=== PATIENT | male | born 1960 | race Caucasian/White ===

== ENCOUNTER → 2017-03-17 | Outpatient (CLI) | payer MEDICARE, BC ==
[~2017-03-17] MED LIST: ABILIFY10 MG PO; ASPIRIN EC81 MG; ATENOLOL25 MG PO; ATORVASTATIN CA10 MG; EFFIENT10 MG PO; LISINOPRIL5 MG PO; NORCO 10-325 T1 EACH; OXYCONTIN20 MG; PRAVACHOL20 MG PO; PRISTIQ ER100 MG PO
--- NOTE | 2017-03-17 14:19 | Diagnostic Imaging Report ---
EXAMINATION: Head CT HISTORY: Headache for last 4 days, frontal pain. COMPARISON: None. TECHNIQUE: Multidetector axial images were obtained without contrast from the foramen magnum to the vertex . The images were reconstructed using brain and bone algorithms. Thin section brain images were reformatted into coronal and sagittal planes. Intravenous contrast: None. Motion/streaking artifact limits the evaluation of the skull base and posterior cranial fossa. FINDINGS: Parenchyma: 1. No abnormal densities. 2. No mass or hemorrhage. No CT evidence of acute territorial vascular insult. Extra-axial spaces:No abnormal density. No extra-axial fluid collections Brain volume: Normal for age. Ventricles: No hydrocephalus or displacement. Arteries: No density suggestive of thrombus. Dural sinuses: No abnormal density. Extra-axial spaces: No abnormal density. Foramen magnum: No mass, Chiari malformation, or basilar invagination. Sella: No obvious mass. Paranasal/mastoid sinuses: Partially visualized opacification of the bilateral ethmoidal, right sphenoid and partially visualized maxillary sinuses. Skull/Scalp: No lytic or blastic lesions. No fractures. IMPRESSION: 1. Normal head CT. 2. Partially visualized sinusitis as detail above. A message was left to the PA as requested. Signed by: Dr. Loren Burnette M.D. on 03/17/2017 2:15 PM
== END ==
LOC: CT 11:37
PROVIDERS: ATTEND Family Medicine
DX: R51 Headache (principal)
CPT/HCPCS: 70450

== ENCOUNTER → 2017-09-07 | Day surgery (SDC) | payer MEDICARE, BC ==
[2017-09-06 14:22] LABS: BASOPHILS # (AUTO) 0.1 (0.0-0.1); BASOPHILS % 0.7 % (0.0-1.0); EOSINOPHILS # (AUTO) 0.3 (0.0-0.4); EOSINOPHILS % 3.1 % (0.0-6.0); HEMATOCRIT 49.3 % (38.2-49.6); LYMPHOCYTES # (AUTO) 2.5 (1.0-3.2); LYMPHOCYTES % 28.3 % (18.0-39.1); MEAN CORPUSCULAR HEMOGLOBIN 29.5 pg (28-32); MEAN CORPUSCULAR HGB CONC 32.5 g/dL (31-35); MEAN CORPUSCULAR VOLUME 90.8 fL (81-99); MONOCYTES # (AUTO) 0.4 (0.2-0.8); MONOCYTES % 4.8 % (4.4-11.3); NEUTROPHILS # (AUTO) 5.6 (2.1-6.9); NEUTROPHILS % 62.8 % (38.7-80.0); PLATELET COUNT 281 x10e3/uL (140-360); RED BLOOD COUNT 5.43 x10e6/uL (4.3-5.7); RED CELL DISTRIBUTION WIDTH 13.9 % (11.7-14.4)
[2017-09-06 15:08] LABS: ALBUMIN 3.9 g/dL (3.5-5.0); ALBUMIN/GLOBULIN RATIO 1.3 (0.8-2.0); ANION GAP 14.7 mmol/L (8-16); CALCIUM 9.1 mg/dL (8.4-10.2); CREATININE, SERUM 1.56 mg/dL (0.72-1.25); POTASSIUM 4.7 mmol/L (3.5-5.1)
[2017-09-07] VITALS (9 sets, daily range): BP systolic 103–134; BP diastolic 42–76
[~2017-09-07] VITALS: Ht 180.3 cm; Wt 105.7 kg
[~2017-09-07] MED LIST changes: +ALPRAZOLAM 0.5 MG TAB ONE; +CLONAZEPAM1 MG PO; +DIPHENHYDRAMINE HCL 25 MG CAP ONE; +FENOFIBRATE145 MG PO; +FENTANYL CITRATE/PF 100MCG/2 ML INJ ONE; +FUROSEMIDE20 MG PO; +HEPARIN SOD (PORCINE) 1000 UNIT/ML 30ML ONE; +HEPARIN SOD/SOD CHLORIDE 2,000 ML ONE; +IOPAMIDOL 300MG/ML 100 ML INFUS..BTL IV ONE; +IOPAMIDOL 370 MG/ML 200 ML INFUS..BTL INJ ONE; +LIDOCAINE HCL 2% LOCAL 20 ML VIAL ONE; +METOPROLOL SUCC25 MG PO; +MIDAZOLAM HCL 2 MG/2 ML VIAL ONE; +NITROGLYCERIN/D5W 200 MCG/ML 250 ML ONE; +REVATIO20 MG PO; +SODIUM CHLORIDE 0.9% 1000ML 1,000 ML ONE; +TRAZODONE HCL50 MG PO; +VENLAFAXINE HC150 M1 PO; +VERAPAMIL HCL 2.5 MG/ML 2 ML VIAL ONE
--- NOTE | 2017-09-07 09:39 | Operative Report ---
DATE OF PROCEDURE: September 07, 2017 PROCEDURE: Cardiac catheterization. INDICATIONS: Cardiomyopathy. PRESEDATION ASSESSMENT: Medical history, social history and previous experience with anesthesia were reviewed as documented in the preoperative medical record. Results of the relevant diagnostic studies were reviewed. Planned choice of anesthesia, risks, complications, benefits and alternatives were discussed with the patient. The patient was deemed an appropriate candidate for planned choice of anesthetic. CONSENT: The benefits, risks, complications and alternatives of the procedure were discussed with the patient, and informed consent was obtained from the patient. MEDICATIONS: Please see nursing notes for medication administration during the procedure. PROCEDURE: The patient was brought to the cardiac catheterization laboratory in a fasting state. Right wrist was prepped and draped in a sterile fashion. One percent lidocaine was used to infiltrate the right wrist over the right radial artery. A 5-Nicaraguan sheath was inserted in the right radial artery using the Seldinger technique. Coronary angiography was performed using a Golden preformed catheter to engage both the RCA and the LCA. Multiple orthogonal views were obtained of each coronary artery. Golden catheter was also used to perform a left heart cath and obtain LV pressures. All catheters were removed over a guidewire. The access site was closed using a TR Band. The case ended without any complications. Estimated blood loss was approximately 20 mL. FINDINGS 1. Left main coronary artery: Large caliber, normal. 2. LAD: Very large vessel, goes to the apex. There is an 80% lesion in the proximal LAD. There is a large diagonal-1 with 90% ostial stenosis. 3. Left circumflex: Nondominant circ. There is a 70% ostial left circumflex lesion. 4. Ramus intermedius: Very large ramus without any significant coronary artery disease. 5. RCA: Large, dominant RCA. Medium-size RPDA and RPL systems. Distally, there is a 40% to 50% plaquing of the mid RCA and 99% stenosis of an acute marginal branch. 6. LV pressures: LVEDP was 14, and there was no gradient across the aortic valve. COMPLICATIONS: None. SPECIMEN REMOVED: None. IMPLANT: None. ESTIMATED BLOOD LOSS: 20 mL. RECOMMENDATIONS 1. Usual postcath care until TR Band removal. 2. Given multivessel CAD, will discuss options for revascularization with the patient and family as well as the primary senior client advisor, Dr. Emil Lozano, to make plan for revascularization. 3. Continue optimal medical therapy and risk factor management in the meantime. Job#: [id number] SANDEEP
== END | disposition home or self-care (01) ==
LOC: CATH LAB 06:40
PROVIDERS: ATTEND Internal Medicine
DX: I25.118 Atherosclerotic heart disease of native coronary artery with other forms of angina pectoris (principal); I42.9 Cardiomyopathy, unspecified; I11.0 Hypertensive heart disease with heart failure; I50.22 Chronic systolic (congestive) heart failure; Z01.812 Encounter for preprocedural laboratory examination; Z68.31 Body mass index [BMI] 31.0-31.9, adult; Z82.49 Family history of ischemic heart disease and other diseases of the circulatory system
CPT/HCPCS: 36415; 80053; 85025; 93458; J1644; J2001; J2250; J7030; Q9967

== ENCOUNTER → 2018-12-25 | Day surgery (SDC) | payer MEDICARE, BC ==
[2018-12-20 17:24] LABS: BASOPHILS # (AUTO) 0.1 (0.0-0.1); BASOPHILS % 0.9 % (0.0-1.0); EOSINOPHILS # (AUTO) 0.4 (0.0-0.4); EOSINOPHILS % 4.4 % (0.0-6.0); HEMATOCRIT 49.2 % (38.2-49.6); HEMOGLOBIN 15.7 g/dL (14.0-18.0); LYMPHOCYTES % 30.5 % (18.0-39.1); MEAN CORPUSCULAR HEMOGLOBIN 30.4 pg (28-32); MEAN CORPUSCULAR HGB CONC 31.9 g/dL (31-35); MEAN CORPUSCULAR VOLUME 95.2 fL (81-99); MONOCYTES # (AUTO) 0.9 (0.2-0.8); MONOCYTES % 9.3 % (4.4-11.3); NEUTROPHILS # (AUTO) 5.3 (2.1-6.9); NEUTROPHILS % 54.4 % (38.7-80.0); PLATELET COUNT 303 x10e3/uL (140-360); RED BLOOD COUNT 5.17 x10e6/uL (4.3-5.7); RED CELL DISTRIBUTION WIDTH 14.9 % (11.7-14.4)
[2018-12-20 17:40] LABS: ALANINE AMINOTRANSFERASE 34 IU/L (0-55); ALBUMIN 3.6 g/dL (3.5-5.0); ALBUMIN/GLOBULIN RATIO 1.1 (0.8-2.0); ALKALINE PHOSPHATASE 53 IU/L (40-150); ANION GAP 8.5 mmol/L (8-16); BLOOD UREA NITROGEN 5 mg/dL (7-26); BUN/CREATININE RATIO 5 (6-25); CALCIUM 9.8 mg/dL (8.4-10.2); CARBON DIOXIDE 27 mmol/L (22-29); CHLORIDE 103 mmol/L (98-107); CREATININE, SERUM 1.08 mg/dL (0.72-1.25); EST GLOMERULAR FILTRATION RATE > 60 ML/MIN (60-); GLUCOSE 88 mg/dL (74-118); POTASSIUM 4.5 mmol/L (3.5-5.1); SODIUM 134 mmol/L (136-145)
[~2018-12-25] VITALS: Ht 180.3 cm; Wt 108.9 kg
[~2018-12-25] MED LIST changes: +ASPIRIN81 MG PO; +CRESTOR10 MG PO; -HEPARIN SOD (PORCINE) 1000 UNIT/ML 30ML ONE; -IOPAMIDOL 300MG/ML 100 ML INFUS..BTL IV ONE; +METFORMIN HCL500 MG PO; +METOPROLOL SUCC50 MG PO; -NITROGLYCERIN/D5W 200 MCG/ML 250 ML ONE; -VERAPAMIL HCL 2.5 MG/ML 2 ML VIAL ONE
--- NOTE | 2018-12-25 14:28 | NUR ---
1428 Received in room #7,bedside report received from Jabier DE LA O. Alert oriented and appropriate, PERRLA, respirations even and unlabored to room air. Pulses x4 enormities equal and strong. Pedal pulses PT/DP X4 and marked. Cap fill brisk < 3 sec. + neurovascular function at this time Skin warm and dry integrity appears D/I. IV 20g to let forearm presents healthy w/o s/s of infiltration or complaint. Abdomen soft and supple. pt offered toileting, denies need to urinate or defecate. No personal affects with patient. Family Halima , Pt and family verbalizes understanding of POC. Currently w/o complaint of pain or need. right groin site dry and intact,no s/s hematoma no ,gross issues pain,pallor, pressure or dysrhythmia.ds/rn
--- NOTE | 2018-12-25 15:00 | NUR ---
1500Pt meets DC criteria. rt groin site assessed for s/s of complication and presence of hematoma. Skin warm, dry, no discolor, and pulses present. IV removed from left forearm. Distal tip appears intact. VS WNL. Pt denies pain, sob, or need at this time. Family at bedside. Review of discharge paperwork and follow up instructions. verbalized understanding. Pt to wheelchair and transported to front of hospital. Transferred to private vehicle under own strength w/o incident with DC paperwork in hand. - ds/rn
--- NOTE | 2018-12-25 18:19 | Operative Report ---
DATE OF PROCEDURE: 12/25/2018 SURGEON: Emil Lozano MD INDICATIONS: Coronary artery disease and angina. PROCEDURES PERFORMED: 1. Left heart catheterization, selective coronary angiography. 2. Deployment of right groin Mynx closure device. COMPLICATIONS: None. RECOMMENDATIONS: Medical therapy. DESCRIPTION OF PROCEDURE: Access obtained in the right femoral artery. A 6-Frisian sheath was placed. Coronary angiography demonstrated patent left main stent in the left anterior descending, proximal and midportion as well as the stent extending into the diagonal artery with widely patent circumflex, mild disease, 50%. Right coronary artery was dominant vessel, 50% mid stenosis. No critical stenosis or occlusion noted. No intervention deemed necessary. Right groin repaired using Mynx closure device. The patient discharged home the same day. Emil Lozano MD KSB/MODL /[id number]
== END | disposition home or self-care (01) ==
LOC: CATH LAB 10:05
PROVIDERS: ATTEND Internal Medicine Interventional Cardiology
DX: I25.119 Atherosclerotic heart disease of native coronary artery with unspecified angina pectoris (principal); I11.0 Hypertensive heart disease with heart failure; I50.9 Heart failure, unspecified; E66.9 Obesity, unspecified; Z01.812 Encounter for preprocedural laboratory examination; Z79.82 Long term (current) use of aspirin; Z79.84 Long term (current) use of oral hypoglycemic drugs; Z68.32 Body mass index [BMI] 32.0-32.9, adult; Z82.49 Family history of ischemic heart disease and other diseases of the circulatory system
CPT/HCPCS: 36415; 80053; 85025; 93454; C1760; C1769; J2001; J2250; J3010; J7030; Q9967; 99152

== ENCOUNTER 2019-04-15 10:25 | Inpatient (IN) | payer MEDICARE, BC ==
[~2019-04-15] VITALS: Ht 180.3 cm; Wt 105.2 kg
[~2019-04-15 10:25] MED LIST changes: -ALPRAZOLAM 0.5 MG TAB ONE; -DIPHENHYDRAMINE HCL 25 MG CAP ONE; -FENTANYL CITRATE/PF 100MCG/2 ML INJ ONE; -HEPARIN SOD/SOD CHLORIDE 2,000 ML ONE; -IOPAMIDOL 370 MG/ML 200 ML INFUS..BTL INJ ONE; -LIDOCAINE HCL 2% LOCAL 20 ML VIAL ONE; -MIDAZOLAM HCL 2 MG/2 ML VIAL ONE; -SODIUM CHLORIDE 0.9% 1000ML 1,000 ML ONE
[2019-04-15] MEDS ORDERED: SODIUM CHLORIDE 0.9% 1000ML 1,000 ML IV STA ×3 (10:29→12:25)
[2019-04-15 11:08] LABS: ABG HCO3 20 mmol/L (23-28); ABG PCO2 33 mmHg (41-51); ABG PO2 87 mmHg (80-105)
[2019-04-15 11:14] LABS: BASOPHILS # (AUTO) 0.1 (0.0-0.1); BASOPHILS % 0.6 % (0.0-1.0); EOSINOPHILS # (AUTO) 0.1 (0.0-0.4); EOSINOPHILS % 0.9 % (0.0-6.0); HEMATOCRIT 45.4 % (38.2-49.6); HEMOGLOBIN 14.8 g/dL (14.0-18.0); LYMPHOCYTES # (AUTO) 2.5 (1.0-3.2); LYMPHOCYTES % 22.2 % (18.0-39.1); MEAN CORPUSCULAR HGB CONC 32.6 g/dL (31-35); MEAN CORPUSCULAR VOLUME 92.1 fL (81-99); MONOCYTES # (AUTO) 1.2 (0.2-0.8); MONOCYTES % 10.2 % (4.4-11.3); NEUTROPHILS # (AUTO) 7.5 (2.1-6.9); NEUTROPHILS % 65.8 % (38.7-80.0); PLATELET COUNT 289 x10e3/uL (140-360); RED BLOOD COUNT 4.93 x10e6/uL (4.3-5.7); RED CELL DISTRIBUTION WIDTH 15.8 % (11.7-14.4)
[2019-04-15 11:39] LABS: ALBUMIN 3.9 g/dL (3.5-5.0); ALBUMIN/GLOBULIN RATIO 1.4 (0.8-2.0); ANION GAP 16.3 mmol/L (8-16); CALCIUM 9.4 mg/dL (8.4-10.2); CREATININE, SERUM 1.52 mg/dL (0.72-1.25); POTASSIUM 4.3 mmol/L (3.5-5.1)
[2019-04-15] MEDS ORDERED: LORAZEPAM INJ 2 MG/ML VIAL IV ONE (11:45)
[2019-04-15 11:48] LABS: CREATINE KINASE MB 31.8 ng/mL (0-5.0)
[2019-04-15] MEDS ORDERED: MORPHINE SULFATE 2 MG/ML SYR 1ML IV PRN (12:15)
[2019-04-15] MEDS: PIPER-TAZ 3.375 GM 50 ML IV SCH ×2 (12:21→18:35)
[2019-04-15] MEDS ORDERED: ASPIRIN 81 MG CHEW TAB PO ONE (12:30)
[2019-04-15 12:36] LABS: CLARITY,URINE SL CLOUDY (CLEAR); COLOR,URINE YELLOW (YELLOW); LEUKOCYTE ESTERASE ,URINE NEGATIVE (NEGATIVE)
[2019-04-15 12:37] LABS: BACTERIA,URINE FEW /HPF; BILIRUBIN,URINE NEGATIVE (NEGATIVE); EPITHELIAL CELLS,URINE FEW /LPF; KETONES,URINE NEGATIVE (NEGATIVE); NITRITE,URINE NEGATIVE (NEGATIVE); PROTEIN,URINE DIPSTICK NEGATIVE (NEGATIVE); RBC,URINE 0-5 /HPF (0-5); URINE UROBILINOGEN 0.2 mg/dL (0.2 - 1); WBC,URINE (MAN) 0-5 /HPF (0-5)
[2019-04-15] MEDS: ENOXAPARIN SODIUM INJ 100 MG/ML SYR SC SCH (12:37)
[2019-04-15 12:42] LABS: AMPHETAMINES SCREEN,URINE NEGATIVE (NEGATIVE); PHENCYCLIDINE SCREEN,URINE NEGATIVE (NEGATIVE)
[2019-04-15 12:44] LABS: BENZODIAZEPINES SCREEN,URINE POSITIVE (NEGATIVE)
--- NOTE | 2019-04-15 13:09 | Diagnostic Imaging Report ---
Exam: Head CT without contrast History: Altered mental status Comparison studies: Head CT 03/17/2017. Technique: Axial images were obtained from the skull base to the vertex. Coronal and sagittal images reconstructed from the axial data. Dose modulation, iterative reconstruction, and/or weight based adjustment of the mA/kV was utilized to reduce the radiation dose to as low as reasonably achievable. Radiation dose: Total DLP: 936.2 mGy*cm. Estimated effective dose: DLP x 0.015 Intravenous contrast: None Findings: Scalp: No abnormalities. Bones: No fractures, blastic or lytic lesions. Brain sulci: Appropriate for age. Ventricles: Normal in size and configuration. No hydrocephalus. Extra-axial spaces: No masses, no fluid collection. Parenchyma: No abnormal densities. No masses, acute hemorrhage, acute or chronic vascular insults. Sellar/suprasellar region: No abnormalities. Craniocervical junction: Patent foramen magnum. No Chiari one malformation. Included paranasal sinuses: Sinuses are clear. Previously present and scattered sinus mucosal thickening and sinus opacification has resolved. IMPRESSION: No acute intracranial abnormalities. Signed by: Dr. Iam Sage M.D. on 04/15/2019 1:07 PM
[2019-04-15] MEDS ORDERED: AMITRIPTYLINE H50 MG PO (13:36)
[2019-04-15] MEDS ORDERED: TEMAZEPAM30 MG PO (13:36)
[2019-04-15] MEDS ORDERED: TYLENOL # 31 EA PO (13:36)
[2019-04-15] MEDS ORDERED: TERBINAFINE HC250 MG PO (13:36)
--- NOTE | 2019-04-15 13:41 | Diagnostic Imaging Report ---
EXAMINATION: CHEST SINGLE (PORTABLE) INDICATION: Altered mental status COMPARISON: None FINDINGS: LINES/TUBES:EKG leads overlie the chest. LUNGS:The lung volumes are low. No focal consolidation. Central vascular crowding, likely related to low lung volumes. PLEURA:No pleural effusion or pneumothorax. MEDIASTINUM:The cardiomediastinal silhouette appears enlarged, although this is possibly related to portable technique and low lung volumes. BONES/SOFT TISSUES:No acute osseous injury. ABDOMEN:No free air under the diaphragm. IMPRESSION: Low lung volumes. No focal pneumonia. Signed by: Karmen Gama MD on 04/15/2019 1:39 PM
[2019-04-15] MEDS: SODIUM CHLORIDE 0.9% 1000ML 1,000 ML IV SCH (13:51)
[2019-04-15] MEDS ORDERED: CLOPIDOGREL BISULFATE 75 MG TAB PO ONE (14:30)
[2019-04-15] MEDS ORDERED: MORPHINE SULFATE INJ 4 MG/ML INJ 1ML IV STA (17:49)
[2019-04-15] MEDS ORDERED: ZIPRASIDONE 20 MG VIAL IM PRN (18:00)
--- NOTE | 2019-04-15 19:28 | Consultation ---
DATE OF CONSULTATION: 04/15/2019 Cardiology Consultation Note REASON FOR CONSULTATION: Elevated troponin. CHIEF COMPLAINT: Could not be obtained due to altered mental status. HISTORY OF PRESENT ILLNESS: The patient is a 58-year-old man known with history of CAD, status post TX and PCI to the RCA about 6-7 years ago, and also status post PCI to the LAD 2-3 years ago. Most recently, he had a coronary angiography performed in November of 2018, which showed patent stents with [id number] plaquing, but no new stents were required. He is presenting with about 2 weeks of worsening altered mental status according to the . Most of the history is obtained from the chart and talking to the family. His is at bedside. She reports that she has noticed that for the past several months, the patient has been forgetful, but for the past 2 weeks he has been increasingly more confused and forgetting where things are, throwing things around the house, and even having episodes where he is seeing things that were not present, for example describes an episode of children running around in his bedroom and him, throwing around all the furniture and the pillows, trying to get them to be quite even though there were no children present in the room. He also reported an episode of chest pain last week that was substernal, radiating to his neck and left arm. The told him to go to the emergency room. The patient refused and became combative. This morning, the patient was also increasingly confused and asked him to go to the ER. The patient refused, then the called over his mother and his sister, who convinced him to come to the hospital via EMS. The patient's mother and sister also endorse the patient acting and behaving very bizarrely, seeing things that are not there, standing next to a wall and saying he is watching TV, unplugging everything in the house, then throwing things around. Currently, the patient is sleeping and not responding to verbal commands or physical stimuli. We were consulted because of troponin initially was noted to be elevated at 7.1. PAST MEDICAL HISTORY: 1. Hypertension. 2. Hyperlipidemia. 3. Coronary artery disease. 4. Diabetes. PAST SURGICAL HISTORY: Status post coronary stents in the past as described above. REVIEW OF SYSTEMS: Could not be obtained due to altered mental status. OUTPATIENT MEDICATIONS: Reviewed. ALLERGIES: REVIEWED. NO KNOWN DRUG ALLERGIES. SOCIAL HISTORY: The patient is a former smoker, does not drink or abuse drugs, however, he does take benzodiazepine and opioids for his chronic pain and anxiety. FAMILY HISTORY: Noncontributory. OBJECTIVE: VITAL SIGNS: Temperature afebrile, pulse 80, respiratory rate 18, blood pressure 119/91, and saturating 100% on nasal cannula. GENERAL: Middle-aged man, sleeping, in no acute distress. CARDIOVASCULAR: Regular rate and rhythm. No murmurs, rubs, or gallops. LUNGS: Coarse breath sounds in bilateral bases. ABDOMEN: Obese, soft, nontender, nondistended. NEURO AND PSYCH: The patient is altered, not responding to verbal or physical stimuli. INPATIENT MEDICATIONS: Reviewed. LABORATORY DATA: Reviewed. Creatinine 1.5. Lactic acid 2.2. Troponin 7.1 with CK-MB of 31.8, CK of 1745. IMAGING DATA: Reviewed. CT scan of the head shows no acute abnormalities. Electrocardiogram reviewed, showed some less than [address] elevations in the inferolateral leads with some Q-waves likely secondary to his prior TX. ASSESSMENT: 1. Non-ST elevation myocardial infarction. 2. Altered mental status. 3. Possible sepsis. PLAN: I agree with anticoagulation with Lovenox 1 mg/kg q.12 hours subcu. Start aspirin and Plavix once oral medications can be given. Plan for coronary angiography once mental status and renal function improves likely tomorrow. Thank you for this consult. We will continue to follow. MD LAURA Joe/RICOL /[id number]
[2019-04-15 20:26] LABS: CREATINE KINASE MB 22.7 ng/mL (0-5.0)
--- NOTE | 2019-04-15 22:33 | NUR ---
Pt assisted to hallway bathroom, ambulatory, steady gait, mild stand-by assist; Sheets changed on stretcher, fresh blankets provided, fresh ice water provided; no needs voiced, will continue to monitor.
[2019-04-15] MEDS: ONDANSETRON HCL INJ 2MG/ML 2ML 2 MG/ML VIAL IV PRN (23:38)
[2019-04-15] MEDS: MORPHINE SULFATE INJ 4 MG/ML INJ 1ML IV PRN (23:38)
[2019-04-16] VITALS (15 sets, daily range): BP systolic 98–144; BP diastolic 49–91
[2019-04-16] MEDS: PIPER-TAZ 3.375 GM 50 ML IV SCH ×4 (02:00→21:42)
[2019-04-16] MEDS: SODIUM CHLORIDE 0.9% 1000ML 1,000 ML IV SCH ×3 (02:00→12:05)
[2019-04-16] MEDS: ENOXAPARIN SODIUM INJ 100 MG/ML SYR SC SCH ×3 (02:00→21:00)
--- NOTE | 2019-04-16 03:13 | NUR ---
Repeat cardiacs drawn at this time, sent to lab for analysis.
[2019-04-16 03:57] LABS: CREATINE KINASE MB 14.7 ng/mL (0-5.0)
--- NOTE | 2019-04-16 04:44 | NUR ---
Pt assisted to hallway bathroom, minimal assist, nad noted; returned to room and placed on campus monitor.
[2019-04-16 06:26] LABS: BASOPHILS # (AUTO) 0.1 (0.0-0.1); BASOPHILS % 0.6 % (0.0-1.0); EOSINOPHILS # (AUTO) 0.2 (0.0-0.4); EOSINOPHILS % 1.9 % (0.0-6.0); HEMATOCRIT 40.1 % (38.2-49.6); LYMPHOCYTES % 36.1 % (18.0-39.1); MEAN CORPUSCULAR HEMOGLOBIN 30.4 pg (28-32); MEAN CORPUSCULAR HGB CONC 32.4 g/dL (31-35); MEAN CORPUSCULAR VOLUME 93.9 fL (81-99); MONOCYTES # (AUTO) 0.8 (0.2-0.8); MONOCYTES % 9.9 % (4.4-11.3); NEUTROPHILS # (AUTO) 4.3 (2.1-6.9); NEUTROPHILS % 51.1 % (38.7-80.0); PLATELET COUNT 251 x10e3/uL (140-360); RED BLOOD COUNT 4.27 x10e6/uL (4.3-5.7); RED CELL DISTRIBUTION WIDTH 16.2 % (11.7-14.4)
--- NOTE | 2019-04-16 06:26 | NUR ---
AM Labs drawn at this time, taken to lab for analysis.
[2019-04-16 06:38] LABS: ANION GAP 12.5 mmol/L (8-16); BLOOD UREA NITROGEN 16 mg/dL (7-26); BUN/CREATININE RATIO 15 (6-25); CALCIUM 7.9 mg/dL (8.4-10.2); CARBON DIOXIDE 21 mmol/L (22-29); CHLORIDE 112 mmol/L (98-107); CREATININE, SERUM 1.06 mg/dL (0.72-1.25); EST GLOMERULAR FILTRATION RATE > 60 ML/MIN (60-); GLUCOSE 95 mg/dL (74-118); POTASSIUM 4.5 mmol/L (3.5-5.1); SODIUM 141 mmol/L (136-145)
[2019-04-16] MEDS ORDERED: CLOPIDOGREL BISULFATE 75 MG TAB PO SCH (09:00)
[2019-04-16] MEDS ORDERED: ASPIRIN 81 MG ENTERIC COATED PO SCH (09:00)
[2019-04-16] MEDS: MORPHINE SULFATE INJ 4 MG/ML INJ 1ML IV PRN (10:38)
[2019-04-16] MEDS: ONDANSETRON HCL INJ 2MG/ML 2ML 2 MG/ML VIAL IV PRN (10:38)
[2019-04-16] MEDS ORDERED: LIDOCAINE HCL 2% LOCAL 20 ML VIAL ONE (14:06)
[2019-04-16] MEDS ORDERED: MIDAZOLAM HCL 2 MG/2 ML VIAL ONE (14:06)
[2019-04-16] MEDS ORDERED: FENTANYL CITRATE/PF 100MCG/2 ML INJ ONE (14:06)
[2019-04-16] MEDS ORDERED: HEPARIN SOD/SOD CHLORIDE 2,000 ML ONE (14:07)
[2019-04-16] MEDS ORDERED: IOPAMIDOL 370 MG/ML 200 ML INFUS..BTL INJ ONE (14:07)
[2019-04-16] MEDS ORDERED: SODIUM CHLORIDE 0.9% 1000ML 1,000 ML ONE (14:07)
--- NOTE | 2019-04-16 14:24 | NUR ---
consent for heart cath signed by patient and placed into chart. patient transported to civil laboratory technician by cathlab staff.
[2019-04-16] MEDS ORDERED: SODIUM CHLORIDE 0.9% 50ML 50 ML ONE (15:00)
[2019-04-16] MEDS ORDERED: BIVALRIUDIN 250 MG/VIAL VIAL IV ONE (15:00)
--- NOTE | 2019-04-16 15:00 | NUR ---
1500 still awaiting bed disposition assignment. ds/rn
[2019-04-16] MEDS ORDERED: PRASUGREL 10 MG TAB ONE (15:11)
[2019-04-16] MEDS ORDERED: ASPIRIN 325 MG TAB ONE (15:12)
--- NOTE | 2019-04-16 15:20 | NUR ---
1520pm RECEIVING NOTE [employer]............................................................... Bedside report received from JAIRON Torres. Identifierx2. Alert oriented and appropriate, PERRLA, respirations even and unlabored to room air. Pulses x4 extremities equal and strong. Pedal pulses PT/DP x4. Cap fill brisk < 3 sec. Rt groin sheath in place non stemi from ED holding. NO gross issues pain,pallor pressure or dysrhythmia. Left iv ac #18 from ED Infusing angio max till completed then iv at 100cc/hr.No signs of infiltration. Coban in place. Pt previous on 1:1 in ED. Awaiting bed placement House supv Tia RN informed and Tele tracker imputed. Skin warm and dry integrity. Abdomen soft and supple. pt offered toileting, denies need to urinate or defecate. No personal affects with patient. Family at bedside spoke with family. Will admit Tele Med surg. tonight. Sheath pull scheduled at 7pm. Currently w/o complaint of pain or need. Remains NPO ,NSR no ectopics Denies CP or SOB. ds/rn
[2019-04-16] MEDS ORDERED: ZOLPIDEM TARTRATE 5 MG TAB PO PRN (15:30)
[2019-04-16] MEDS ORDERED: ONDANSETRON HCL INJ 2MG/ML 2ML 2 MG/ML VIAL IV PRN (15:30)
[2019-04-16] MEDS ORDERED: ACETAMINOPHEN 325 MG TAB PO PRN (15:30)
--- NOTE | 2019-04-16 16:03 | Operative Report ---
DATE OF PROCEDURE: 04/16/2019 SURGEON: Emil Lozano MD INDICATION: Gmx-H-pbkisls elevation myocardial infarction. PROCEDURES PERFORMED: 1. Left heart catheterization, selective coronary angiography. 2. Stent placement in the right coronary artery. COMPLICATIONS: None. RECOMMENDATIONS: Dual antiplatelet therapy for life. Noninvasive evaluation for significance of circumflex stenosis. DESCRIPTION OF PROCEDURE: Access was obtained in the right femoral artery. A 6-English sheath was placed. Right coronary artery demonstrated mid 70% stenosis with thrombus and ulcerated plaque. Circumflex ostial 70% stenosis. Left main widely patent. Ramus intermedius widely patent. Left anterior descending artery stent was widely patent. A decision was made to intervene on the right coronary artery. The patient received intravenous Angiomax and oral aspirin and Effient for anticoagulation. The left main was cannulated using a JR4, 6-English guiding catheter. Short Runthrough wire was advanced for support. Primary stent 3.0 x 12 mm Resolute deployed at 16 atmospheres, excellent end result, less than 10% residual stenosis, ROMAIN-3 flow. No complications. Sheath was secured in place for removal under manual pressure. The patient admitted to the hospital for observation. Emil Lzoano MD KSB/MODL /[id number]
--- NOTE | 2019-04-16 17:00 | NUR ---
1700p Elaine voiced pt increased last month in forgetfulness and audible Hallucinations.([facility] [place] PARTIDA) Currently pt has been on psychiatric medications. Supposed to be further evaluation prior to dc. Sheath pull still scheduled 7pm. Bed rom 200.ds/rn
--- NOTE | 2019-04-16 18:27 | NUR ---
Received report from manufacturing lab technician recovery nurse, Rita. Patient is s/p heart cath. Per manufacturing lab technician nurse , patient will need 1: sitter and sheath will be pulled at the bedside with RN.
--- NOTE | 2019-04-16 19:00 | NUR ---
1900 sheath pull completed downtime 12midnight. Rt groin stasis after 20min manual hold per Nick cath lab manager and Rita RN on standby, Monitor remained in NSR No gross issues pain,pallor,pressure or dysrhythmia.Stat lock dressing in place ant ppx4 PT/DP strong. Elaine aware pt to be monitored on floor care with bedside YARN WEIGHT AND STRENGTH TESTER. 2nd face to face report with Red Powers who aware pt iv continue at 100cc/hr and down time. Left pt bedside with call light at bedside, bed in low position and side rails up.Pty aware to call for assistance. Denies CP or SB monitor remains in NSR Report to tele room. Stasis remains to rt groin with PP Dp/Pt strong. ash/rn
[2019-04-16] MEDS ORDERED: ENTRESTO 49 MG1 EACH PO (20:35)
[2019-04-16] MEDS ORDERED: CLONAZEPAM 1 MG TAB PO SCH (21:00)
[2019-04-16] MEDS ORDERED: NON-FORMULARY MEDICATION (Amitriptyline Hcl 100 MG) PO SCH (21:00)
[2019-04-16] MEDS: TEMAZEPAM 15 MG CAP PO SCH (21:42)
[2019-04-16] MEDS: AMITRIPTYLINE HCL 25 MG TAB PO SCH (21:42)
[2019-04-16] MEDS: ACETAMINOPHEN/CODEINE 300MG - 30MG TAB PO PRN (21:54)
[2019-04-17] VITALS (8 sets, daily range): BP systolic 114–150; BP diastolic 56–92
--- NOTE | 2019-04-17 | NUR ---
CHANGED GROIN DRESSING DRESSING WAS SATURATED, HELD PRESSURE FOR 15 MIN. NO BLOOD SEEN, DRESSING CHANGED. ADDITIONAL BEDREST UNTIL 2 AM.
[2019-04-17] MEDS: MORPHINE SULFATE INJ 4 MG/ML INJ 1ML IV PRN (00:05)
[2019-04-17] MEDS: SODIUM CHLORIDE 0.9% 1000ML 1,000 ML IV SCH ×3 (02:00→21:00)
[2019-04-17] MEDS: PIPER-TAZ 3.375 GM 50 ML IV SCH ×4 (03:09→21:08)
[2019-04-17 05:28] LABS: BASOPHILS # (AUTO) 0.1 (0.0-0.1); BASOPHILS % 0.9 % (0.0-1.0); EOSINOPHILS # (AUTO) 0.2 (0.0-0.4); HEMATOCRIT 39.9 % (38.2-49.6); HEMOGLOBIN 12.8 g/dL (14.0-18.0); LYMPHOCYTES # (AUTO) 2.3 (1.0-3.2); LYMPHOCYTES % 34.3 % (18.0-39.1); MEAN CORPUSCULAR HEMOGLOBIN 30.3 pg (28-32); MEAN CORPUSCULAR HGB CONC 32.1 g/dL (31-35); MEAN CORPUSCULAR VOLUME 94.3 fL (81-99); MONOCYTES # (AUTO) 0.6 (0.2-0.8); MONOCYTES % 9.5 % (4.4-11.3); NEUTROPHILS # (AUTO) 3.5 (2.1-6.9); NEUTROPHILS % 52.2 % (38.7-80.0); PLATELET COUNT 231 x10e3/uL (140-360); RED BLOOD COUNT 4.23 x10e6/uL (4.3-5.7); RED CELL DISTRIBUTION WIDTH 16.1 % (11.7-14.4)
[2019-04-17 05:45] LABS: BLOOD UREA NITROGEN 10 mg/dL (7-26); BUN/CREATININE RATIO 9 (6-25); CALCIUM 8.2 mg/dL (8.4-10.2); CARBON DIOXIDE 25 mmol/L (22-29); CHLORIDE 109 mmol/L (98-107); CHOL/HDL RATIO 4.6 (3.9-4.7); CHOLESTEROL 102 MD/DL (0-199); CREATININE, SERUM 1.08 mg/dL (0.72-1.25); EST GLOMERULAR FILTRATION RATE > 60 ML/MIN (60-); GLUCOSE 114 mg/dL (74-118); HDL CHOLESTEROL 22 MG/DL (40-60); LDL CHOLESTEROL 53 MG/DL (60-130); SODIUM 138 mmol/L (136-145); TRIGLYCERIDES 135 MG/DL (0-149)
[2019-04-17] MEDS: ACETAMINOPHEN/CODEINE 300MG - 30MG TAB PO PRN (07:07)
[2019-04-17] MEDS ORDERED: NON-FORMULARY MEDICATION (Venlafaxine Hcl (Venlafaxine Hcl Er) 150 MG) PO SCH (09:00)
[2019-04-17] MEDS: FENOFIBRATE 160 MG PO SCH (09:00)
[2019-04-17] MEDS ORDERED: VENLAFAXINE HCL 75 MG TAB PO SCH (09:00)
[2019-04-17] MEDS ORDERED: NON-FORMULARY MEDICATION (Aripiprazole (Abilify) 15 MG) PO SCH (09:00)
[2019-04-17] MEDS: ENOXAPARIN SODIUM INJ 100 MG/ML SYR SC SCH ×2 (09:00→22:00)
[2019-04-17] MEDS: ASPIRIN 81 MG CHEW TAB PO SCH (09:50)
[2019-04-17] MEDS: ARIPIPRAZOLE 5 MG TABLET PO SCH (09:50)
[2019-04-17] MEDS: TERBINAFINE 250 MG TAB PO SCH (09:51)
[2019-04-17] MEDS: VENLAFAXINE HCL 75 MG CAPCR PO SCH (09:51)
[2019-04-17] MEDS: CLONAZEPAM 1 MG TAB PO SCH ×2 (09:51→18:10)
[2019-04-17] MEDS: METOPROLOL SUCCINATE 50 MG TAB XL PO SCH (09:51)
[2019-04-17] MEDS: PRASUGREL 10 MG TAB PO SCH (09:51)
--- NOTE | 2019-04-17 19:25 | NUR ---
Patient received asleep in bed. Aroused by tactile stimuli. Sitter at bedside. No signs of pain, discomfort or respiratory distress. Telemetry in place. IVF infusing at 100cc/hr. Fall precautions implemented. Call light within reach.
[2019-04-17] MEDS: AMITRIPTYLINE HCL 25 MG TAB PO SCH (21:08)
[2019-04-17] MEDS: TEMAZEPAM 15 MG CAP PO SCH (21:08)
[2019-04-17] MEDS: SIMVASTATIN 40 MG TAB PO SCH (21:09)
--- NOTE | 2019-04-17 22:38 | Progress Note ---
DATE: 04/17/2019 Cardiology Progress Note SUBJECTIVE: No major events overnight. Had PCI to the RCA yesterday, so the chest pain has completely resolved now. Feels much better. Continues to remain intermittently confused, was apparently talking all night in the sleep and seems without pain. OBJECTIVE: VITAL SIGNS: Temperature afebrile, pulse 90, respiratory rate 19, blood pressure 142/82, saturating 98% on room air. GENERAL: Middle-aged man, well developed, well nourished, no acute distress. CARDIOVASCULAR: Regular rate and rhythm. No murmurs, rubs, or gallops. LUNGS: Clear to auscultation bilaterally. ABDOMEN: Soft, nontender, nondistended. NEURO AND PSYCH: Alert and oriented to person, place, and time. Normal affect. INPATIENT MEDICATIONS: Reviewed. LABORATORY DATA: Reviewed. Renal function is stable. TELEMETRY DATA: Reviewed, shows normal sinus rhythm. ASSESSMENT: 1. Non-ST elevation myocardial infarction. 2. Altered mental status. PLAN: Status post PCI to the RCA. Continue aspirin 81 mg daily and Prasugrel 10 mg daily. We will resume his home cardiovascular medications. Otherwise, the patient is okay to be discharged from a cardiovascular standpoint. Need followup with Dr. Emil Lozano in clinic in 1-2 weeks post discharge. Workup of altered mental status per primary team. MD LAURA Joe/ELSA /[id number]
[2019-04-18] VITALS (8 sets, daily range): BP systolic 118–145; BP diastolic 62–99
[2019-04-18] MEDS: SODIUM CHLORIDE 0.9% 1000ML 1,000 ML IV SCH ×3 (02:58→13:40)
[2019-04-18] MEDS: PIPER-TAZ 3.375 GM 50 ML IV SCH ×4 (02:58→21:00)
--- NOTE | 2019-04-18 07:00 | NUR ---
BEDSIDE SHIFT REPORT RECEIVED FROM THE MOTORS AND CONTROLS TESTER RN. PT AAOX3. SITTER AT BEDSIDE. EDUCATED PT ABOUT FALL PRECAUTIONS. CALL LIGHT WITH IN EASY REACH. INSTRUCTED PT TO USE CALL LIGHT FOR ALL THE NEEDS. PT VERBALIZED UNDERSTANDING. BED IS LOW AND LOCKED. SIDE RAILS X2. PT DENIES NEEDS AT THIS TIME.
--- NOTE | 2019-04-18 07:00 | NUR ---
Walking rounds done. Patient resting comfortably. BSSR given to oncoming nurse.
[2019-04-18] MEDS: ACETAMINOPHEN/CODEINE 300MG - 30MG TAB PO PRN ×2 (08:03→21:15)
[2019-04-18] MEDS: FENOFIBRATE 160 MG PO SCH (09:00)
[2019-04-18] MEDS: ARIPIPRAZOLE 5 MG TABLET PO SCH (09:16)
[2019-04-18] MEDS: VENLAFAXINE HCL 75 MG CAPCR PO SCH (09:17)
[2019-04-18] MEDS: ASPIRIN 81 MG CHEW TAB PO SCH (09:17)
[2019-04-18] MEDS: PRASUGREL 10 MG TAB PO SCH (09:17)
[2019-04-18] MEDS: CLONAZEPAM 1 MG TAB PO SCH ×2 (09:18→17:11)
[2019-04-18] MEDS: TERBINAFINE 250 MG TAB PO SCH (09:18)
[2019-04-18] MEDS: METOPROLOL SUCCINATE 50 MG TAB XL PO SCH (09:19)
[2019-04-18] MEDS: ENOXAPARIN SODIUM INJ 100 MG/ML SYR SC SCH (09:21)
--- NOTE | 2019-04-18 10:00 | NUR ---
PAGED DR. CARRERO REGARDING MRI AND DR. Alejandra NEWMAN REGARDING D/C TELE FOR MRI. WAITING FOR THE RESPONSE FROM
[2019-04-18 10:05] LABS: FREE THYROXINE INDEX 1.5367 (1.4-3.8); THYROID STIMULATING HORMONE 1.641 uIU/mL (0.350-4.940)
[2019-04-18] MEDS: MORPHINE SULFATE INJ 4 MG/ML INJ 1ML IV PRN ×2 (10:09→16:23)
--- NOTE | 2019-04-18 11:00 | NUR ---
RADIOLOGY AT BEDSIDE. PT AT BEDSIDE.
--- NOTE | 2019-04-18 12:25 | NUR ---
MRI NO CONTRAST PER DR. CARRERO. INFORMED THE SAME TO MRI.
--- NOTE | 2019-04-18 15:00 | NUR ---
PT OFF UNIT FOR MRI IN SAFE CONDITION
--- NOTE | 2019-04-18 15:51 | NUR ---
PT BACK TO UNIT AFTER MRI. DENIES NEEDS AT THIS TIME.
--- NOTE | 2019-04-18 16:00 | Consultation ---
DATE OF CONSULTATION: Neurology Consultation REASON FOR CONSULTATION: Seeing the patient for delirium. HISTORY OF PRESENT ILLNESS: The patient was admitted with chest pain. Found to have a heart attack with troponin level of 5. According to the patient's I spoke to the phone the patient has been having about several weeks of intermittent delirium and confusion occurring mostly at night, but with increasing neurocognitive decline over that period of time. Confusion and disorientation, losing dates, time, and orientation. She states that he speaks nonsense and becomes extremely confused. She states that there was no evidence of head trauma or seizures in the history, but does have a significant psychiatric history including being chronically on amitriptyline, clonazepam, Abilify, temazepam, and venlafaxine. Thus far imaging has been negative. Laboratory study shows significantly positive tox screen. The troponin leak as mentioned before otherwise, labs look relatively reassuring. PHYSICAL EXAMINATION: VITAL SIGNS: Show a heart rate of 71 and regular, temperature is 98.2, and blood pressure 118/74. HEENT: Extraocular muscles intact. Face symmetric. Tongue is midline. Speech is clear. He is oriented x3 at this time. He is able to do simple calculations, follow commands including crossover commands. Pupils are reactive. His nose has no nuchal rigidity. CARDIOVASCULAR: Regular rate and rhythm. PULMONARY: Clear to auscultation. ABDOMEN: Soft and nontender. Reflexes are diminished, but present. There is no ataxia or tremors noted on exam. NEUROLOGIC: Strength is 5/5 throughout. ASSESSMENT AND PLAN: I am seeing Mr. Camacho Fleming for confusion and delirium. We will get workup a couple of metabolic, toxic, white count, ammonia level, TSH, and vitamin levels. We will get MRI in each angle from there. No changes or additions to his medications at this time until diagnostic workup is completed and we will proceed as able. JAYLEN CARRERO MD RR/MODL /[id number]
--- NOTE | 2019-04-18 16:04 | Diagnostic Imaging Report ---
MRI BRAIN WO HISTORY: Altered mental status COMPARISON: Head CT 04/15/2019 TECHNIQUE: Multiplanar 3-D T1, axial T2, axial T2/FLAIR, axial gradient echo (or susceptibility weighted), and axial diffusion weighted MR images of the brain were obtained without contrast. DISCUSSION: Scalp/bone marrow: Unremarkable. Brain sulci: Prominent. Ventricles: Compensatory dilatation. Extra-axial spaces: No masses or fluid collections. Parenchyma: Scattered T2/FLAIR hyperintense foci throughout the supratentorial white matter are likely chronic microvascular ischemic changes. Otherwise, no mass, hemorrhage, or acute vascular insults. Vessels: Normal flow voids in major arteries and veins. Sellar/Suprasellar region: No abnormalities. Craniocervical junction: No abnormalities. Incidental findings: None. IMPRESSION: 1. No acute intracranial abnormalities. 2. Mild supratentorial chronic microvascular ischemic change. 3. Mild generalized cerebral volume loss. Signed by: Dr. Rm Carballo M.D. on 04/18/2019 4:01 PM
--- NOTE | 2019-04-18 18:30 | NUR ---
PT REQUESTING PAIN MED TYLENOL #4 THAT DO NOT CARRY PER PHARMACY. PAGED DR. Reg BEGUM AND LEFT MESSAGE REGARDING THE SAME. WAITING FOR THE RESPONSE FROM THE
--- NOTE | 2019-04-18 19:25 | NUR ---
Patient received lying in bed. AAO x 3. No acute distress noted. Call light within reach.
[2019-04-18] MEDS: TEMAZEPAM 15 MG CAP PO SCH (21:00)
[2019-04-18] MEDS: AMITRIPTYLINE HCL 25 MG TAB PO SCH (21:00)
[2019-04-18] MEDS: SIMVASTATIN 40 MG TAB PO SCH (21:00)
--- NOTE | 2019-04-18 21:49 | Progress Note ---
DATE: 04/18/2019 Cardiology Progress Note SUBJECTIVE: No major events overnight. No chest pain. No shortness of breath. OBJECTIVE: VITAL SIGNS: Temperature afebrile, pulse 76, respiratory rate 20, blood pressure 125/72, saturating 98% on room air. GENERAL: A middle-aged man, well developed, well nourished, no acute distress. CARDIOVASCULAR: Regular rate and rhythm. No murmurs, rubs, or gallops. LUNGS: Clear to auscultation bilaterally. ABDOMEN: Soft, nontender, nondistended. Obese. No masses. NEURO AND PSYCH: Alert and oriented to person, place, and time. Normal affect. EXTREMITIES: Warm, well perfused. No edema or ulcers. INPATIENT MEDICATIONS: Reviewed. LABORATORY DATA: Reviewed. TELEMETRY DATA: Reviewed, shows normal sinus rhythm. abnormalities, mild supratentorial chronic microvascular changes. ASSESSMENT: 1. Non-ST elevation myocardial infarction. 2. Altered mental status. PLAN: Status post PCI to the RCA. Continue aspirin 81 mg daily and Prasugrel 5 mg daily. Continue home cardiovascular medications. Otherwise, okay to be discharged from a cardiovascular standpoint . We will continue to follow. MD LAURA Joe/RICOL /[id number]
[2019-04-19] VITALS: BP_SYST 147; BP_SYST 159; BP_DIAS 80; BP_DIAS 88
[2019-04-19] MEDS: PIPER-TAZ 3.375 GM 50 ML IV SCH ×2 (03:25→08:23)
[2019-04-19 04:00] VITALS: BP 108/55
--- NOTE | 2019-04-19 07:00 | NUR ---
Patient resting comfortably. Shift report given to oncoming nurse.
--- NOTE | 2019-04-19 07:00 | NUR ---
BEDSIDE SHIFT REPORT RECEIVED FROM THE KAIAKO KOHANGA REO RN. PT AAOX3. AT BEDSIDE. EDUCATED PT ABOUT FALL PRECAUTIONS. CALL LIGHT WITH IN EASY REACH. INSTRUCTED PT TO USE CALL LIGHT FOR ALL THE NEEDS. PT VERBALIZED UNDERSTANDING. BED IS LOW AND LOCKED. SIDE RAILS X2. PT DENIES NEEDS AT THIS TIME.
[2019-04-19] MEDS: ASPIRIN 81 MG CHEW TAB PO SCH (08:13)
[2019-04-19] MEDS: ARIPIPRAZOLE 5 MG TABLET PO SCH (08:13)
[2019-04-19] MEDS: PRASUGREL 10 MG TAB PO SCH (08:14)
[2019-04-19] MEDS: VENLAFAXINE HCL 75 MG CAPCR PO SCH (08:14)
[2019-04-19] MEDS: TERBINAFINE 250 MG TAB PO SCH (08:15)
[2019-04-19] MEDS: METOPROLOL SUCCINATE 50 MG TAB XL PO SCH (08:15)
[2019-04-19] MEDS: FENOFIBRATE 160 MG PO SCH (08:16)
[2019-04-19 08:17] VITALS: BP 130/68
[2019-04-19] MEDS: MORPHINE SULFATE INJ 4 MG/ML INJ 1ML IV PRN (08:17)
[2019-04-19] MEDS: SODIUM CHLORIDE 0.9% 1000ML 1,000 ML IV SCH (08:23)
[2019-04-19 08:42] VITALS: BP 130/68
[2019-04-19] MEDS ORDERED: CLONAZEPAM 1 MG TAB PO SCH (09:00)
--- NOTE | 2019-04-19 09:53 | NUR ---
eeg report: 20 min study reviewed in bipolar, transverse and referential montage. 10/20 international electrode placement system used EEG - 9-hz posterior dominant rythnm, reactive, waxing and waning anterior beta frequency, 14-19 hz sleep captured- intemirttent slowing followed by sleep spindles and v waves EEG interpretation: this EEG is normal but showed the patient enter stage 2 sleep twice in 30 min. this is an uncommon finding and may suggest patient would benefit from a formal sleep study and a multi-sleep latency test
--- NOTE | 2019-04-19 10:07 | NUR ---
no recurrence of event 95.7 108/55 71 eomi perrl face symmetric speech clear oriented x 3 rrr cta no nuchal rigidity motor 5/5 reflexes diminished no ataxia a/p no evidence seizure polypharmacy and recreational substance use compounding possible sleep disorder recommend patient see pcp/psych and sleep specialist to adjust meidcaitons and optimize therapy no evidence epilepsy, stroke or dementia
--- NOTE | 2019-04-19 10:33 | NUR ---
D/C PT PER DR. Alexsander BEGUM.
--- NOTE | 2019-04-19 10:45 | NUR ---
NO PRESCRIPTIONS PER DR. Alexsander BEGUM.
[2019-04-19 10:58] VITALS: BP 128/79
--- NOTE | 2019-04-19 11:00 | NUR ---
JOLLY MORELOS PT D/C. WAITING FOR THE RESPONSE FROM THE
--- NOTE | 2019-04-19 11:30 | NUR ---
NO HOME MED PRASUGREL PER THE PT. INFORMED THE SAME TO DR. Alejandra NEWMAN. WAITING FOR THE RESPONSE FROM THE
[2019-04-19] MEDS ORDERED: ONDANSETRON HCL 4 MG ORAL DISINTEGRATING TAB PO PRN (11:45)
--- NOTE | 2019-04-19 12:06 | NUR ---
CALL BACK RECEIVED FROM DR. Alejandra NEWMAN. WILL COME AND SEE THE PT BEFORE D/C.
[2019-04-19] MEDS ORDERED: EFFIENT10 MG PO (12:28)
--- NOTE | 2019-04-19 12:33 | NUR ---
ROSA M TO D/C PT PER DR. Alejandra NEWMAN. NEW RX RECEIVED FOR PRASUGREL 10 MG PO DAILY FROM THE
--- NOTE | 2019-04-19 12:45 | NUR ---
PT DISCHARGED HOME SAFELY WITH HIS . TELEMETRY AND IV REMOVED, TIP INTACT. DRESSING APPLIED. RX GIVEN. DISCHARGE INSTRUCTIONS GIVEN AND PATIENT VERBALIZED UNDERSTANDING. PT ESCORTED WITH THE TECH TO THE PRIVATE AUTO AT THE FRONT ENTRANCE. PT DENIED FURTHER NEEDS.
== END 2019-04-19 12:45 | disposition home or self-care (01) | DRG 246 ==
LOC: ER 10:25 → UNDOADMIN 12:08 → ERHOLD 12:08 → CATH LAB 04-16 14:56 → MED/SURG2 04-16 18:25
PROC: 027034Z Dilation of Coronary Artery, One Artery with Drug-eluting Intraluminal Device, Percutaneous Approach (ICD-10-PCS; principal; 2019-04-16)
PROC: 4A023N7 Measurement of Cardiac Sampling and Pressure, Left Heart, Percutaneous Approach (ICD-10-PCS; 2019-04-16)
DX: I21.4 Non-ST elevation (NSTEMI) myocardial infarction (principal); G93.41 Metabolic encephalopathy; I25.10 Atherosclerotic heart disease of native coronary artery without angina pectoris; Z95.5 Presence of coronary angioplasty implant and graft; E11.9 Type 2 diabetes mellitus without complications; G47.33 Obstructive sleep apnea (adult) (pediatric); E78.5 Hyperlipidemia, unspecified; F32.9 Major depressive disorder, single episode, unspecified
CPT/HCPCS: 36415; 36600; 70450; 70551; 71045; 80048; 80053; 80061; 80307; 80320; 81001; 82140; 82550; 82553; 82607; 82746; 82805; 82948; 83605; 83835; 83880; 84260; 84425; 84436; 84443; 84479; 84484; 85025; 85651; 86039; 87040; 92928; 93005; 93306; 93454; 95812; 99152; 99153; 99285; C1769; C1874; J0583; J1650; J2001; J2060; J2250; J2270; J2405; J2543; J3010; J7030; Q9967

== ENCOUNTER → 2019-12-05 | Outpatient (CLI) | payer MEDICARE, BC ==
[~2019-12-05] MED LIST changes: +AMITRIPTYLINE H50 MG PO; +ENTRESTO 49 MG1 EACH PO; +TEMAZEPAM30 MG PO; +TERBINAFINE HC250 MG PO; +TYLENOL # 31 EA PO
--- NOTE | 2019-12-05 18:44 | Diagnostic Imaging Report ---
EXAM: CT Chest WITHOUT contrast INDICATION: Chest pain and abnormal chest x-ray. COMPARISON: Chest x-ray on 04/15/2019 TECHNIQUE: Chest was scanned utilizing a multidetector helical scanner from the lung apex through the level of the adrenal glands without administration of IV contrast. Absence of intravenous contrast decreases sensitivity for detection of lymphadenopathy and vascular pathology. Coronal and sagittal reformations were obtained. Routine protocol was performed. IV CONTRAST: None COMPLICATIONS: None RADIATION DOSE: Total DLP: 602 mGy*cm Estimated effective dose: (DLP x 0.014 x size factor) mSv CTDIvol has been reviewed. It is below the limits set by the Radiation Protocol Committee (RPC). Dose modulation, iterative reconstruction, and/or weight based adjustment of the mA/kV was utilized to reduce the radiation dose to as low as reasonably achievable. FINDINGS: LINES/ TUBES: None. LUNGS AND AIRWAYS: Evaluation of the lungs is limited by respiratory motion artifact. There is hazy and nodular airspace opacities in the posterior aspect of the right upper, middle and lower lobes. Airways are normal. PLEURA: The pleural spaces are clear. HEART AND MEDIASTINUM: The thyroid gland is normal. No mediastinal, hilar or axillary lymphadenopathy. The heart is normal is mildly enlarged with atherosclerotic calcification of the coronary vessels. There is no pericardial effusion. UPPER ABDOMEN: Unremarkable. BONES: The visualized bony thorax is within normal limits. SOFT TISSUES: Unremarkable. IMPRESSION: 1. Hazy and nodular airspace opacity in the posterior aspect of the right upper, middle and lower lobes. Constellation of findings are most compatible with developing multifocal pneumonia. 2. Mild cardiomegaly with atherosclerotic calcification of the coronary vessels, particularly the LAD. Signed by: Cathy Griffin MD on 12/05/2019 6:40 PM
== END ==
LOC: CT 17:30
PROVIDERS: ATTEND Family Medicine
DX: R93.89 Abnormal findings on diagnostic imaging of other specified body structures (principal)
CPT/HCPCS: 71250

== ENCOUNTER 2019-12-10 09:30 | Inpatient (IN) | payer MEDICARE, BC ==
[~2019-12-10] VITALS: Ht 177.8 cm; Wt 111.1 kg
[2019-12-10] MEDS ORDERED: SODIUM CHLORIDE 0.9% 1000ML 1,000 ML IV STA (10:03)
[2019-12-10] MEDS ORDERED: SODIUM CHLORIDE 0.9% 1000ML 1,000 ML IV SCH (10:15)
[2019-12-10] MEDS: AZITHROMYCIN 500MG/NS 250 ML 250 ML IV SCH (10:42)
[2019-12-10 10:57] LABS: BASOPHILS # (AUTO) 0.1 (0.0-0.1); BASOPHILS % 0.4 % (0.0-1.0); EOSINOPHILS # (AUTO) 0.1 (0.0-0.4); EOSINOPHILS % 0.7 % (0.0-6.0); HEMATOCRIT 49.8 % (38.2-49.6); HEMOGLOBIN 16.4 g/dL (14.0-18.0); LYMPHOCYTES # (AUTO) 1.5 (1.0-3.2); LYMPHOCYTES % 8.9 % (18.0-39.1); MEAN CORPUSCULAR HEMOGLOBIN 30.4 pg (28-32); MEAN CORPUSCULAR HGB CONC 32.9 g/dL (31-35); MEAN CORPUSCULAR VOLUME 92.2 fL (81-99); MONOCYTES # (AUTO) 0.7 (0.2-0.8); NEUTROPHILS # (AUTO) 14.1 (2.1-6.9); NEUTROPHILS % 85.5 % (38.7-80.0); PLATELET COUNT 288 x10e3/uL (140-360)
[2019-12-10 11:12] LABS: INR 0.95; PROTHROMBIN TIME 13.2 seconds (11.9-14.5)
[2019-12-10 11:13] LABS: PARTIAL THROMBOPLASTIN TIME 26.2 seconds (23.8-35.5)
[2019-12-10 11:27] LABS: ALBUMIN/GLOBULIN RATIO 1.4 (0.8-2.0); ANION GAP 13.2 mmol/L (8-16); CALCIUM 8.9 mg/dL (8.4-10.2); CREATININE, SERUM 1.53 mg/dL (0.72-1.25); POTASSIUM 4.2 mmol/L (3.5-5.1)
[2019-12-10] MEDS ORDERED: TRAZODONE HCL50 MG PO (11:36)
[2019-12-10] MEDS ORDERED: QUETIAPINE FUM100 MG PO (11:36)
[2019-12-10 11:51] LABS: CREATINE KINASE MB 1.6 ng/mL (0-5.0)
[2019-12-10] MEDS: CEFTRIAXONE SOD 2 GM/NS 100 ML 100 ML IV SCH (12:50)
[2019-12-10] MEDS ORDERED: tylenol #4 PO (13:31)
[2019-12-10] MEDS: HYDROCODONE/APAP 7.5MG-325MG 1 EA TAB PO PRN ×3 (13:49→23:35)
[2019-12-10 14:22] VITALS: BP 144/84
[2019-12-10] MEDS ORDERED: LEVOTHYROXINE50 MCG PO (14:53)
[2019-12-10 15:45] VITALS: BP 144/84
[2019-12-10 17:32] LABS: CREATINE KINASE MB 1.4 ng/mL (0-5.0)
[2019-12-10 20:52] VITALS: BP 132/71
[2019-12-10 21:00] VITALS: BP 132/71
[2019-12-10] MEDS: INSULIN REGULAR, HUMAN 100 UNIT/1 ML 3ML VIAL SQ SCH (21:00)
[2019-12-10] MEDS ORDERED: TRAZODONE HCL 50 MG TAB PEG SCH (21:00)
[2019-12-10] MEDS: QUETIAPINE FUMARATE 100 MG TAB PO SCH (21:55)
[2019-12-10] MEDS: CLONAZEPAM 1 MG TAB PO SCH (22:05)
[2019-12-11] VITALS (7 sets, daily range): BP systolic 129–147; BP diastolic 67–84
[2019-12-11 05:44] LABS: BASOPHILS # (AUTO) 0.1 (0.0-0.1); BASOPHILS % 0.6 % (0.0-1.0); EOSINOPHILS # (AUTO) 0.4 (0.0-0.4); EOSINOPHILS % 4.5 % (0.0-6.0); HEMATOCRIT 45.4 % (38.2-49.6); HEMOGLOBIN 14.6 g/dL (14.0-18.0); LYMPHOCYTES # (AUTO) 2.7 (1.0-3.2); LYMPHOCYTES % 30.4 % (18.0-39.1); MEAN CORPUSCULAR HGB CONC 32.2 g/dL (31-35); MEAN CORPUSCULAR VOLUME 93.4 fL (81-99); MONOCYTES # (AUTO) 0.5 (0.2-0.8); MONOCYTES % 5.8 % (4.4-11.3); NEUTROPHILS # (AUTO) 5.2 (2.1-6.9); NEUTROPHILS % 58.3 % (38.7-80.0); PLATELET COUNT 253 x10e3/uL (140-360); RED BLOOD COUNT 4.86 x10e6/uL (4.3-5.7); RED CELL DISTRIBUTION WIDTH 15.4 % (11.7-14.4)
[2019-12-11 06:04] LABS: ALBUMIN 3.3 g/dL (3.5-5.0); ALBUMIN/GLOBULIN RATIO 1.2 (0.8-2.0); ANION GAP 11.2 mmol/L (8-16); CALCIUM 8.4 mg/dL (8.4-10.2); CREATININE, SERUM 1.26 mg/dL (0.72-1.25); POTASSIUM 4.2 mmol/L (3.5-5.1)
[2019-12-11] MEDS: LEVOTHYROXINE SODIUM 50 MCG TAB PO SCH (06:10)
[2019-12-11] MEDS: HYDROCODONE/APAP 7.5MG-325MG 1 EA TAB PO PRN ×5 (06:10→23:31)
[2019-12-11 06:31] LABS: CREATINE KINASE MB 1.9 ng/mL (0-5.0)
[2019-12-11] MEDS: INSULIN REGULAR, HUMAN 100 UNIT/1 ML 3ML VIAL SQ SCH ×4 (07:30→20:33)
[2019-12-11] MEDS: SACUBITRIL/VALSARTAN 1 EACH TABLET PO SCH ×2 (09:00→17:00)
[2019-12-11] MEDS ORDERED: CLONAZEPAM 1 MG TAB PO SCH (09:00)
[2019-12-11] MEDS: FENOFIBRATE 160 MG TAB PO SCH (09:00)
[2019-12-11] MEDS: AZITHROMYCIN 500MG/NS 250 ML 250 ML IV SCH (11:16)
[2019-12-11] MEDS: ASPIRIN 81 MG CHEW TAB PO SCH (11:16)
[2019-12-11] MEDS: PRASUGREL 10 MG TAB PO SCH (11:16)
[2019-12-11] MEDS: METFORMIN HCL 500 MG TAB PO SCH (11:16)
[2019-12-11] MEDS: TERBINAFINE 250 MG TAB PO SCH (11:17)
[2019-12-11] MEDS: METOPROLOL SUCCINATE 50 MG TAB XL PO SCH (11:17)
[2019-12-11] MEDS: FUROSEMIDE 20 MG TAB PO SCH (11:17)
[2019-12-11] MEDS: CEFTRIAXONE SOD 2 GM/NS 100 ML 100 ML IV SCH (12:43)
[2019-12-11 12:54] LABS: HIV 1&2 AB SCREEN NON-REACTIVE (NONREACTIVE)
[2019-12-11] MEDS: TRAZODONE HCL 50 MG TAB PO SCH (22:02)
[2019-12-11] MEDS: QUETIAPINE FUMARATE 100 MG TAB PO SCH (22:02)
[2019-12-11] MEDS: CLONAZEPAM 1 MG TAB PO SCH (22:02)
[2019-12-11] MEDS: SIMVASTATIN 40 MG TAB PO SCH (22:02)
[2019-12-12] VITALS (9 sets, daily range): BP systolic 106–158; BP diastolic 66–85
[2019-12-12] MEDS: LEVOTHYROXINE SODIUM 50 MCG TAB PO SCH (06:01)
[2019-12-12] MEDS: HYDROCODONE/APAP 7.5MG-325MG 1 EA TAB PO PRN ×6 (06:04→23:15)
[2019-12-12] MEDS: INSULIN REGULAR, HUMAN 100 UNIT/1 ML 3ML VIAL SQ SCH ×4 (07:30→21:00)
[2019-12-12] MEDS: SACUBITRIL/VALSARTAN 1 EACH TABLET PO SCH ×2 (08:55→15:05)
[2019-12-12] MEDS: FENOFIBRATE 160 MG TAB PO SCH (08:55)
[2019-12-12] MEDS: ASPIRIN 81 MG CHEW TAB PO SCH (11:32)
[2019-12-12] MEDS: TERBINAFINE 250 MG TAB PO SCH (11:32)
[2019-12-12] MEDS: AZITHROMYCIN 500MG/NS 250 ML 250 ML IV SCH (11:32)
[2019-12-12] MEDS: PRASUGREL 10 MG TAB PO SCH (11:32)
[2019-12-12] MEDS: METFORMIN HCL 500 MG TAB PO SCH (11:32)
[2019-12-12] MEDS: FUROSEMIDE 20 MG TAB PO SCH (11:33)
[2019-12-12] MEDS: METOPROLOL SUCCINATE 50 MG TAB XL PO SCH (11:33)
[2019-12-12] MEDS: CEFTRIAXONE SOD 2 GM/NS 100 ML 100 ML IV SCH (11:34)
[2019-12-12] MEDS ORDERED: NON-FORMULARY MEDICATION (Aripiprazole (Abilify) 15 MG) PO SCH (17:15)
[2019-12-12] MEDS ORDERED: VENLAFAXINE HCL 300 MG PO SCH (17:15)
[2019-12-12] MEDS ORDERED: ACETAMINOPHEN/CODEINE 300MG - 30MG TAB PO PRN (17:30)
[2019-12-12] MEDS: ARIPIPRAZOLE 5 MG TABLET PO SCH (17:55)
[2019-12-12] MEDS: VENLAFAXINE HCL 75 MG CAPCR PO SCH (17:55)
[2019-12-12] MEDS ORDERED: NON-FORMULARY MEDICATION (Amitriptyline Hcl 100 MG) PO SCH (21:00)
[2019-12-12] MEDS ORDERED: AMITRIPTYLINE HCL 25 MG TAB PO SCH (21:00)
[2019-12-12] MEDS ORDERED: TEMAZEPAM 15 MG CAP PO PRN (21:00)
[2019-12-12] MEDS ORDERED: NON-FORMULARY MEDICATION (Temazepam 30 MG) PO SCH (21:00)
[2019-12-12] MEDS: CLONAZEPAM 1 MG TAB PO SCH (21:25)
[2019-12-12] MEDS: TRAZODONE HCL 50 MG TAB PO SCH (21:26)
[2019-12-12] MEDS: QUETIAPINE FUMARATE 100 MG TAB PO SCH (21:26)
[2019-12-12] MEDS: SIMVASTATIN 40 MG TAB PO SCH (21:26)
[2019-12-13] VITALS (7 sets, daily range): BP systolic 117–142; BP diastolic 56–83
[2019-12-13] MEDS: LEVOTHYROXINE SODIUM 50 MCG TAB PO SCH (05:10)
[2019-12-13 05:14] LABS: BASOPHILS # (AUTO) 0.1 (0.0-0.1); BASOPHILS % 0.8 % (0.0-1.0); EOSINOPHILS # (AUTO) 0.4 (0.0-0.4); EOSINOPHILS % 3.6 % (0.0-6.0); HEMATOCRIT 45.8 % (38.2-49.6); HEMOGLOBIN 15.1 g/dL (14.0-18.0); LYMPHOCYTES # (AUTO) 2.8 (1.0-3.2); LYMPHOCYTES % 29.1 % (18.0-39.1); MEAN CORPUSCULAR HEMOGLOBIN 30.8 pg (28-32); MEAN CORPUSCULAR VOLUME 93.3 fL (81-99); MONOCYTES # (AUTO) 0.7 (0.2-0.8); MONOCYTES % 7.2 % (4.4-11.3); NEUTROPHILS # (AUTO) 5.7 (2.1-6.9); NEUTROPHILS % 58.6 % (38.7-80.0); PLATELET COUNT 290 x10e3/uL (140-360); RED BLOOD COUNT 4.91 x10e6/uL (4.3-5.7); RED CELL DISTRIBUTION WIDTH 15.3 % (11.7-14.4)
[2019-12-13] MEDS: HYDROCODONE/APAP 7.5MG-325MG 1 EA TAB PO PRN ×3 (05:21→14:37)
[2019-12-13 05:40] LABS: ALBUMIN 3.6 g/dL (3.5-5.0); ALBUMIN/GLOBULIN RATIO 1.2 (0.8-2.0); ANION GAP 13.9 mmol/L (8-16); CALCIUM 8.7 mg/dL (8.4-10.2); CREATININE, SERUM 1.41 mg/dL (0.72-1.25); POTASSIUM 3.9 mmol/L (3.5-5.1)
[2019-12-13] MEDS: INSULIN REGULAR, HUMAN 100 UNIT/1 ML 3ML VIAL SQ SCH ×3 (07:30→16:30)
[2019-12-13] MEDS: FENOFIBRATE 160 MG TAB PO SCH (07:58)
[2019-12-13] MEDS: TERBINAFINE 250 MG TAB PO SCH (09:16)
[2019-12-13] MEDS: VENLAFAXINE HCL 75 MG CAPCR PO SCH (09:16)
[2019-12-13] MEDS: AZITHROMYCIN 500MG/NS 250 ML 250 ML IV SCH (09:16)
[2019-12-13] MEDS: METFORMIN HCL 500 MG TAB PO SCH (09:16)
[2019-12-13] MEDS: SACUBITRIL/VALSARTAN 1 EACH TABLET PO SCH ×2 (09:16→12:54)
[2019-12-13] MEDS: ASPIRIN 81 MG CHEW TAB PO SCH (09:16)
[2019-12-13] MEDS: ARIPIPRAZOLE 5 MG TABLET PO SCH (09:16)
[2019-12-13] MEDS: PRASUGREL 10 MG TAB PO SCH (09:16)
[2019-12-13] MEDS: FUROSEMIDE 20 MG TAB PO SCH (09:16)
[2019-12-13] MEDS: METOPROLOL SUCCINATE 50 MG TAB XL PO SCH (09:17)
[2019-12-13] MEDS: CEFTRIAXONE SOD 2 GM/NS 100 ML 100 ML IV SCH (11:45)
== END 2019-12-13 17:45 | disposition home or self-care (01) | DRG 195 ==
LOC: ER 10:14 → ERHOLD 10:16 → MED/SURG2 14:37
DX: J18.9 Pneumonia, unspecified organism (principal); E11.9 Type 2 diabetes mellitus without complications; I10 Essential (primary) hypertension; R06.02 Shortness of breath; I25.10 Atherosclerotic heart disease of native coronary artery without angina pectoris; J18.1 Lobar pneumonia, unspecified organism; I25.2 Old myocardial infarction; I11.0 Hypertensive heart disease with heart failure; I50.9 Heart failure, unspecified; F32.9 Major depressive disorder, single episode, unspecified; E66.9 Obesity, unspecified; Z68.35 Body mass index [BMI] 35.0-35.9, adult
CPT/HCPCS: 36415; 71045; 71046; 71250; 80053; 82550; 82553; 82948; 83880; 84484; 85025; 85610; 85730; 86631; 86738; 87040; 87390; 93005; 93306; 96361; 99284; G0433; G0435; J0456; J0696; J7030; U0002

== ENCOUNTER → 2020-01-27 | Day surgery (SDC) | payer MEDICARE, BC ==
[2020-01-22 10:04] LABS: BASOPHILS # (AUTO) 0.1 (0.0-0.1); BASOPHILS % 1.2 % (0.0-1.0); EOSINOPHILS # (AUTO) 0.4 (0.0-0.4); EOSINOPHILS % 3.8 % (0.0-6.0); HEMATOCRIT 48.6 % (38.2-49.6); HEMOGLOBIN 15.7 g/dL (14.0-18.0); LYMPHOCYTES # (AUTO) 2.6 (1.0-3.2); LYMPHOCYTES % 27.8 % (18.0-39.1); MEAN CORPUSCULAR HEMOGLOBIN 30.7 pg (28-32); MEAN CORPUSCULAR HGB CONC 32.3 g/dL (31-35); MEAN CORPUSCULAR VOLUME 95.1 fL (81-99); MONOCYTES # (AUTO) 0.8 (0.2-0.8); NEUTROPHILS # (AUTO) 5.5 (2.1-6.9); NEUTROPHILS % 58.1 % (38.7-80.0); PLATELET COUNT 255 x10e3/uL (140-360); RED BLOOD COUNT 5.11 x10e6/uL (4.3-5.7); RED CELL DISTRIBUTION WIDTH 14.7 % (11.7-14.4)
[2020-01-22 10:28] LABS: ALBUMIN 3.7 g/dL (3.5-5.0); ALBUMIN/GLOBULIN RATIO 1.2 (0.8-2.0); ANION GAP 11.3 mmol/L (8-16); CALCIUM 8.7 mg/dL (8.4-10.2); CREATININE, SERUM 1.44 mg/dL (0.72-1.25); POTASSIUM 4.3 mmol/L (3.5-5.1)
[2020-01-27] VITALS (9 sets, daily range): BP systolic 100–137; BP diastolic 64–87
[~2020-01-27] VITALS: Ht 177.8 cm; Wt 111.1 kg
[~2020-01-27] MED LIST changes: +FENTANYL CITRATE/PF 100MCG/2 ML INJ ONE; +HEPARIN SOD (PORCINE) 1000 UNIT/ML 30ML ONE; +HEPARIN SOD/SOD CHLORIDE 2,000 ML ONE; +IOPAMIDOL 300MG/ML 100 ML INFUS..BTL IV ONE; +IOPAMIDOL 370 MG/ML 200 ML INFUS..BTL INJ ONE; +LEVOTHYROXINE50 MCG PO; +LIDOCAINE HCL 2% LOCAL 20 ML VIAL ONE; +MIDAZOLAM HCL 2 MG/2 ML VIAL ONE; +NITROGLYCERIN/D5W 200 MCG/ML 250 ML ONE; +QUETIAPINE FUM100 MG PO; +SODIUM CHLORIDE 0.9% 1000ML 1,000 ML ONE; +VERAPAMIL HCL 2.5 MG/ML 2 ML VIAL ONE; +tylenol #4 PO
--- NOTE | 2020-01-30 09:56 | Operative Report ---
DATE OF PROCEDURE: 01/27/2020 SURGEON: Emil Lozano MD INDICATIONS: 1. Peripheral arterial disease, claudication. 2. Coronary artery disease, angina, abnormal stress test. PROCEDURES PERFORMED: 1. Ultrasound-guided access in the right radial artery with sheath placement. 2. Left heart catheterization, selective coronary angiography. 3. Conscious sedation, 35 minutes. 4. Abdominal aortogram with runoff to bilateral femoral arteries. 5. Deployment of right wrist TR band. COMPLICATIONS: None. RECOMMENDATIONS: Medical therapy for coronary artery disease. Medical therapy for severe infrapopliteal peripheral arterial disease and resolution of symptoms, ulceration, or critical limb ischemia. DESCRIPTION OF PROCEDURE: Access was obtained in the right radial artery using ultrasound guidance. A 5-Kyr[place] sheath was placed. Coronary angiography demonstrated patent left main stent in the left anterior descending artery. Ostium was widely patent. Circumflex and ramus intermedius both and ostial 50% stenosis. Right coronary artery proximal 50% stenosis. Mid right coronary artery stent was widely patent. The abdominal aortogram demonstrated widely patent abdominal aorta and iliacs bilaterally. Femoral popliteal artery is widely patent. All infrapopliteal vessels are completely occluded. Infrapopliteal vessels were not well visualized, but appeared to be occluded. No intervention deemed necessary. Right wrist TR band applied. The patient discharged home the same day. Emil Lozano MD KSB/MODL /[id number]
== END | disposition home or self-care (01) ==
LOC: CATH LAB 06:23
PROVIDERS: ATTEND Internal Medicine Interventional Cardiology
DX: I25.118 Atherosclerotic heart disease of native coronary artery with other forms of angina pectoris (principal); I82.493 Acute embolism and thrombosis of other specified deep vein of lower extremity, bilateral; I70.213 Atherosclerosis of native arteries of extremities with intermittent claudication, bilateral legs; E66.9 Obesity, unspecified; I11.0 Hypertensive heart disease with heart failure; I50.9 Heart failure, unspecified; E11.59 Type 2 diabetes mellitus with other circulatory complications; R09.89 Other specified symptoms and signs involving the circulatory and respiratory systems; Z01.812 Encounter for preprocedural laboratory examination; Z20.828 Contact with and (suspected) exposure to other viral communicable diseases; Z79.82 Long term (current) use of aspirin; Z79.84 Long term (current) use of oral hypoglycemic drugs; Z68.33 Body mass index [BMI] 33.0-33.9, adult; Z95.5 Presence of coronary angioplasty implant and graft; Z82.49 Family history of ischemic heart disease and other diseases of the circulatory system
CPT/HCPCS: 36415; 75625; 75716; 76937; 80053; 85025; 93454; C1769 ×2; C1887 ×2; J1644; J2001; J2250; J3010; J7030; Q9967 ×2; U0002; 99152; 99153